=== PATIENT | female | born 1990 | race Caucasian/White ===

== ENCOUNTER → 2020-07-11 | Outpatient (CLI) | payer OTHER ==
[~2020-07-11] MED LIST: ANTOXYBENA RIGHTEAR; APRI1 EACH PO; Aldactone100 MG PO; BCP; CEPH500 PO; CLIN300 PO; CYCL10 PO; Cleocin HCl300 MG PO; Colace100 MG PO; EMOQUETTE1 EACH PO; ESCI10 PO; HYDACE5 PO; LAMO100 PO; LITH300C PO; LITH300ER PO; LORA1 PO; Naprosyn500 MG PO; PHENA200 PO; PROM25 PO; Percocet 5-3251 EACH PO; RISP.5 PO; SPIR50 PO; SULTRIDS PO; VALA500 PO
[2020-07-11 19:12] LABS: BASOPHILS ABSOLUTE AUTO 0.05 K/mm3 (0.00-0.23); BASOPHILS PERCENT AUTO 1 % (0-2); EOSINOPHILS ABSOLUTE AUTO 0.07 K/mm3 (0.00-0.68); EOSINOPHILS PERCENT AUTO 1 % (0-6); Hemoglobin 14.7 g/dL (11.5-16.0); IMMATURE GRAN ABSOLUTE AUTO 0.01 K/mm3 (0.00-0.10); IMMATURE GRAN PERCENT AUTO 0 % (0-1); LYMPHOCYTES ABSOLUTE AUTO 2.19 K/mm3 (0.84-5.20); LYMPHOCYTES PERCENT AUTO 28 % (21-46); MONOCYTES ABSOLUTE AUTO 0.49 K/mm3 (0.16-1.47); MONOCYTES PERCENT AUTO 6 % (4-13); Mean Corpuscular HGB Conc 33.4 g/dL (31.5-36.5); Mean Corpuscular Volume 93 fL (80-100); Mean Platelet Volume 11.5 fL (9.1-12.4); NEUTROPHILS ABSOLUTE AUTO 5.07 K/mm3 (1.96-9.15); NEUTROPHILS PERCENT AUTO 64 % (41-73); Platelet Count 225 K/mm3 (150-400); RDW Coefficient Variation 11.5 % (11.7-14.2); RDW Standard Deviation 39.5 fL (35.1-46.3); Red Blood Cell Count 4.74 M/mm3 (3.80-5.20); White Blood Cell Count 7.88 K/mm3 (4.00-11.30)
[2020-07-11 20:30] LABS: Alanine Aminotransfer (ALT/SGP 25 U/L (12-78); Albumin, Blood 4.1 g/dL (3.4-5.0); Albumin/Globulin Ratio 1.1 (0.8-1.8); Alk Phos 101 U/L (50-136); Anion Gap 6 mmol/L (6-16); Aspartate Aminotrans (AST/SGOT 17 U/L (12-37); Bilirubin, Total 0.4 mg/dL (0.1-1.0); Blood Urea Nitrogen 13 mg/dL (8-24); Bun/Creatinine Ratio 18.2 (12.0-20.0); CHOL/HDL RATIO 2.9; CO2, Blood 26 mmol/L (21-32); Calcium, Blood 8.9 mg/dL (8.5-10.1); Chloride, Blood 106 mmol/L (98-108); Cholesterol 174 mg/dL (50-200); Creatinine, Blood 0.72 mg/dL (0.40-1.00); Globulin, Blood 3.6 g/dL (2.2-4.0); Glomerular Filtration Rate >60 (60-); Glucose, Blood 79 mg/dL (70-99); HDL Cholesterol 59 mg/dL (>39); LDL/HDL RATIO 1.6; Low Density Lipoprotein Chol 95 mg/dL (0-110); Potassium, Blood 3.6 mmol/L (3.5-5.5); Sodium, Blood 138 mmol/L (136-145); Total Protein, Blood 7.7 g/dL (6.4-8.2); Triglycerides 101 mg/dL (30-140); Very Low Density Lipoprot Chol 20 mg/dL (6-28)
== END | disposition home or self-care (01) ==
LOC: LAB 17:36 → LAB SHORT 17:36
PROVIDERS: Family Medicine
DX: Z76.89 Persons encountering health services in other specified circumstances (principal)
CPT/HCPCS: 80053; 80061; 84443; 85025

== ENCOUNTER → 2020-08-12 | Outpatient (CLI) | payer OTHER | LOC: LAB SHORT 10:07 → LAB 10:07 | DX: R53.83 Other fatigue (principal); R10.30 Lower abdominal pain, unspecified | CPT/HCPCS: 87077; 87086; 87186 ==

== ENCOUNTER 2022-06-06 10:16 | Day surgery (SDC) | payer OTHER ==
[~2022-06-06] VITALS: Ht 170.2 cm; Wt 78.1 kg
[~2022-06-06 10:16] MED LIST changes: +ALPR.5 PO; +DEPO-TESTO200 MG/11 IM; +ESTRADIOL1 MG PO; +LEVSOD75 PO
--- NOTE | 2022-06-06 11:04 | NUR ---
06/06/22 1104 EVERARDO JANE PT ADVISED DR. VILLALTA IS RUNNING BEHIND BY HALF AN HOUR. CALL LIGHT WITHIN REACH AND PT HAS PHONE.
--- NOTE | 2022-06-06 13:11 | NUR ---
06/06/22 1311 Christiano Mcclendon INJECTED IN PRE OP.
--- NOTE | 2022-06-06 14:14 | NUR ---
06/06/22 1414 DARBY PEDROZA RN CALLED DOCTOR OFFICE TO CONFIRM RX FOR PAIN MEDICATION. TRAMADOL ORDERED.
== END 2022-06-06 14:09 | disposition home or self-care (01) ==
LOC: ORSCSDS 10:16
PROVIDERS: Orthopaedic Surgery
PROC: 01N54ZZ Release Median Nerve, Percutaneous Endoscopic Approach (ICD-10-PCS; principal; 2022-06-06 11:45)
DX: G56.03 Carpal tunnel syndrome, bilateral upper limbs (principal); F41.9 Anxiety disorder, unspecified; Z87.891 Personal history of nicotine dependence; Z79.899 Other long term (current) drug therapy
CPT/HCPCS: J2250; J7120

== ENCOUNTER → 2025-01-20 | Outpatient (CLI) | payer SELFPAY | LOC: LAB SHORT 11:32 → LAB 11:32 | DX: R30.0 Dysuria (principal); R35.0 Frequency of micturition | CPT/HCPCS: 87086 ==